=== PATIENT | male | born 1980 ===

== ENCOUNTER 2017-01-01 20:16 | Emergency (ER) | payer MEDICAID, OTHER ==
[2017-01-01 20:16] VITALS: BMI 21.7
--- NOTE | 2017-01-01 20:24 | ED PDOC ---
Arrival/HPI - General Historian: Patient - History of Present Illness Time/Duration: Other (2 days) Quality: Aching Context: Home - General Time Seen by Provider: 01/01/17 20:23 - History of Present Illness Narrative History of Present Illness (Text): 01/01/17 20:24 This 36 yo male presents to this ED c/o left knee pain x 2 days. Patient stated he tripped and fell on the floor, causing to twist his left knee. Patient denies hip pain, ankle pain, back pain, dizziness, weakness, paresthesias, or abnormal gait. (Justine Brand) Past Medical History - Provider Review Nursing Documentation Reviewed: Yes - Infectious Disease Hx of Infectious Diseases: None - Tetanus Immunization Tetanus Immunization: Unknown - Cardiac Hx Cardiac Disorders: No - Pulmonary Hx Bronchitis: Yes - Neurological Hx Neurological Disorder: No - HEENT Hx HEENT Disorder: No - Renal Hx Renal Disorder: No - Endocrine/Metabolic Hx Endocrine Disorders: No - Hematological/Oncological Hx Blood Disorders: No - Integumentary Hx Dermatological Disorder: Yes Other/Comment: skin fungus on right arm - Musculoskeletal/Rheumatological Hx Musculoskeletal Disorders: No - Gastrointestinal Hx Gastrointestinal Disorders: No - Genitourinary/Gynecological Hx Genitourinary Disorders: No - Psychiatric Hx Anxiety: Yes Hx Substance Use: Yes (marijuana) - Surgical History Hx Appendectomy: Yes - Anesthesia Hx Anesthesia: Yes Hx Anesthesia Reactions: No Hx Malignant Hyperthermia: No - Suicidal Assessment Feels Threatened In Home Enviroment: No Family/Social History - Physician Review Nursing Documentation Reviewed: Yes Family/Social History: Other (non-contributory) Smoking Status: Heavy Smoker > 10 Cigarettes Daily Hx Alcohol Use: Yes Hx Substance Use: Yes (marijuana) Substance used: PCP Allergies/Home Meds Allergies/Adverse Reactions: Allergies No Known Allergies Allergy (Verified 01/01/17 20:27) Review of Systems - Review of Systems Constitutional: Normal. absent: Fatigue, Weight Change, Fevers, Night Sweats Eyes: Normal ENT: Normal Respiratory: Normal. absent: SOB, Cough, Sputum, Wheezing Cardiovascular: Normal. absent: Chest Pain, Palpitations Gastrointestinal: Normal. absent: Abdominal Pain, Nausea, Vomiting Genitourinary Male: Normal Musculoskeletal: Other ((+) left knee pain) Skin: Normal. absent: Rash Neurological: Normal. absent: Headache, Dizziness, Focal Weakness, Gait Changes , Speech Changes, Facial Droop, Disequilibrium, Seizure Endocrine: Normal Hemo/Lymphatic: Normal Psychiatric: Normal Physical Exam Temperature: Afebrile Blood Pressure: Normal Pulse: Regular Respiratory Rate: Normal Appearance: Positive for: Well-Appearing, Non-Toxic, Comfortable Pain Distress: None Mental Status: Positive for: Alert and Oriented X 3 - Systems Exam Head: Present: Atraumatic, Normocephalic Pupils: Present: PERRL Extroacular Muscles: Present: EOMI Conjunctiva: Present: Normal Mouth: Present: Moist Mucous Membranes Neck: Present: Normal Range of Motion Back: Present: Normal Inspection Upper Extremity: Present: Normal Inspection, Normal ROM, NORMAL PULSES, Neurovascularly Intact, Capillary Refill < 2s. No: Cyanosis, Edema Lower Extremity: Present: Normal Inspection, NORMAL PULSES, Normal ROM, Tenderness (Mild tenderness on palpation over knee joint. No ecchymosis, or swelling), Neurovascularly Intact, Capillary Refill < 2 s, Other (Anterior and posterior knee drawer are negative.). No: Edema, Swelling, Erythema, Deformity , Temperature Abnormalties Neurological: Present: GCS=15, CN II-XII Intact, Speech Normal Skin: Present: Warm, Dry, Normal Color. No: Rashes Psychiatric: Present: Alert, Oriented x 3, Normal Insight, Normal Concentration Vital Signs Temp Pulse Resp BP Pulse Ox 01/01/17 20:28 98.3 F 70 18 133/60 98 01/01/17 20:26 98.3 F 70 16 133/60 98 Medical Decision Making Re-evaluation Time: 22:30 Reassessment Condition: Re-examined, Improved ED Course and Treatment: 01/01/17 21:34 I was available for consultation during PA evaluation. The chart was reviewed by me, and I agree with disposition. The documented history was done by the physician operations team leader. The documented procedures were done by the physician operations team leader. (Radu De La Garza) 01/01/17 20:25 Patient refused pain medication at this time 01/01/17 22:30 Re-evaluation. Patient feels better. Discussed results and plan with patient who expresses understanding. All questions answered and there is agreement with the plan to discharge home with instructions. Patient stable for discharge. Return if symptoms persist or worsen. (Justine Brand) - RAD Interpretation Narrative RAD Interpretations (Text): 01/01/17 22:30 Knee x-rays: No fracture or sublux. (Justine Brand) Radiology Orders: 01/01/17 20:28 KNEE WITH PATELLA LEFT 3 VIEW [RAD] Stat - Procedure PROCEDURE NOTE (Text): 01/01/17 22:30 Evelio bandage was recommended (Justine Brand) Disposition/Present on Arrival - Present on Arrival Any Indicators Present on Arrival: No History of DVT/PE: No History of Uncontrolled Diabetes: No Urinary Catheter: No History Surgical Site Infection Following: None - Disposition Have Diagnosis and Disposition been Completed?: Yes Disposition Time: 22:31 Patient Plan: Discharge - Disposition Diagnosis: Knee pain Disposition: HOME/ ROUTINE Patient Problems: Current Active Problems Problem Status Onset Knee pain Acute Condition: GOOD Discharge Instructions (ExitCare): Knee Pain (ED) Additional Instructions: Call private doctor for follow up visit in 1-2 days. Take medication as instructed with food. Return to the emergency if symptoms worsen. remove evelio bandage at bedtime Prescriptions: Ibuprofen [Motrin] 600 mg PO Q8 PRN #20 tab PRN Reason: Pain, Severe (8-10) Referrals: Chu Crawley JD, MD [Primary Care Provider] - Follow up with primary Forms: [facility] ([place]), WORK NOTE
[2017-01-01 20:26] VITALS: TEMP 98.3
[2017-01-01 20:31] VITALS: RESP 18
[2017-01-01 23:37] VITALS: BP 135/63; PULSE 74; O2SAT 99
--- NOTE | 2017-01-02 09:08 | RAD ---
PROCEDURE: Left Knee Radiographs. HISTORY: Pain. COMPARISON: None. FINDINGS: BONES: Normal. No fracture. JOINTS: Normal. No osteoarthritis. JOINT EFFUSION: None. OTHER FINDINGS: None. IMPRESSION: No evidence of acute fracture or dislocation.
== END 2017-01-01 22:50 | disposition home or self-care (01) ==
LOC: ED 20:16
DX: M25.562 Pain in left knee (principal)